=== PATIENT | female | born 1985 | race African-American/Black ===

== ENCOUNTER 2018-05-31 15:32 | Emergency (ER) | payer MEDICAID ==
[~2018-05-31] VITALS: Ht 157.5 cm; Wt 118.0 kg
[2018-05-31] MEDS ORDERED: SODIUM CHLORIDE 0.9% 1,000 ML IV ONE (15:44)
[2018-05-31] MEDS ORDERED: DIPHENHYDRAMINE 50MG/ML VIAL IV ONE (15:45)
[2018-05-31] MEDS ORDERED: METHYLPREDNISOLONE SOD SUCC 125 MG/2 ML VIAL IV ONE (15:45)
[2018-05-31] MEDS ORDERED: FAMOTIDINE 20MG/2ML VIAL IV ONE (15:45)
[2018-05-31] MEDS ORDERED: PREDNISONE 20MG TABLET PO ONE (19:15)
[2018-05-31 20:33] VITALS: BP 146/90
== END 2018-05-31 20:45 | disposition home or self-care (01) ==
LOC: ER 15:32
DX: T78.01XA Anaphylactic reaction due to peanuts, initial encounter (principal); E66.01 Morbid (severe) obesity due to excess calories; Z68.42 Body mass index [BMI] 45.0-49.9, adult; Z91.010 Allergy to peanuts; X58.XXXA Exposure to other specified factors, initial encounter
CPT/HCPCS: 81025; 96374; 96375; 99283; J1200; J2930; J3490; J7030; J7512; Z7610